=== PATIENT | female | born 1990 | race African-American/Black ===

== ENCOUNTER 2017-08-11 14:49 | Inpatient (IN) | payer OTHER ==
[~2017-08-11] VITALS: Ht 149.9 cm; Wt 49.0 kg
[2017-08-16] MEDS ORDERED: DICY20TA PO (16:18)
[2017-08-16] MEDS ORDERED: OMEPRAZOLE20 MG PO (16:18)
== END 2017-08-16 18:19 | disposition home or self-care (01) | DRG 392 ==
LOC: ER 14:49 → SURH 08-12 09:46 → SEC-K 08-12 09:46 → SURH 08-12 11:29
PROC: CF1C1ZZ Planar Nuclear Medicine Imaging of Hepatobiliary System, All using Technetium 99m (Tc-99m) (ICD-10-PCS; principal; 2017-08-12)
PROC: BW21Y0Z Computerized Tomography (CT Scan) of Abdomen and Pelvis using Other Contrast, Unenhanced and Enhanced (ICD-10-PCS; 2017-08-15)
DX: K29.00 Acute gastritis without bleeding (principal)